=== PATIENT | male | born 1960 | race Caucasian/White ===

== ENCOUNTER 2018-06-17 15:34 | Emergency (ER) | payer OTHER ==
[~2018-06-17] VITALS: Ht 188 cm; Wt 109.1 kg
[~2018-06-17 15:34] MED LIST: ASPI-611 PO; MULT-1141 PO; TICA90TA PO
[2018-06-17 15:37] VITALS: BP 157/94
[2018-06-17] MEDS ORDERED: DOXYCYCLINE 100MG CAPSULE PO STA (15:52)
[2018-06-17] MEDS ORDERED: tetanus & diphtheria toxoid (Td) vaccine 0.5ml IMVAC ONE (15:55)
[2018-06-17] MEDS ORDERED: TETanus/Pertussis (Acell)/Diphther VAC/PF (Tdap-Adult) 0.5ml syringe IMVAC ONE (16:10)
== END 2018-06-17 16:13 | disposition home or self-care (01) ==
LOC: ER 15:35
DX: S30.861A Insect bite (nonvenomous) of abdominal wall, initial encounter (principal); Z88.0 Allergy status to penicillin; Z79.82 Long term (current) use of aspirin; Z79.899 Other long term (current) drug therapy; W57.XXXA Bitten or stung by nonvenomous insect and other nonvenomous arthropods, initial encounter; Y93.89 Activity, other specified; Y92.89 Other specified places as the place of occurrence of the external cause; Y99.8 Other external cause status
CPT/HCPCS: 90471; 90715; 99283

== ENCOUNTER 2019-09-05 15:20 | Inpatient (IN) | payer OTHER ==
[~2019-09-05] VITALS: Ht 188 cm; Wt 111.4 kg
[2019-09-05 16:10] LABS: BASOPHILS # (AUTO) 0.1 X10'3 (0-0.2); BASOPHILS % (AUTO) 0.8 % (0-1); EOSINOPHILS # (AUTO) 0.7 X10'3 (0-0.9); EOSINOPHILS % (AUTO) 7.3 % (0-6); HEMATOCRIT 49.3 % (42.0-52.0); HEMOGLOBIN 16.6 g/dl (14.0-17.9); LYMPHOCYTES # (AUTO) 2.1 X10'3 (1.1-4.8); LYMPHOCYTES % (AUTO) 22.6 % (21-51); MEAN CORPUSCULAR HEMOGLOBIN 31.1 PG (27.0-31.0); MEAN CORPUSCULAR HGB CONC 33.6 g/dL (33.0-36.5); MEAN CORPUSCULAR VOLUME 92.3 FL (78-98); MEAN PLATELET VOLUME 7.8 FL (7.4-10.4); MONOCYTES # (AUTO) 0.9 X10'3 (0-0.9); MONOCYTES % (AUTO) 9.9 % (2-12); NEUTROPHILS # (AUTO) 5.5 X10'3 (1.8-7.7); NEUTROPHILS % (AUTO) 59.4 % (42-75); PLATELET COUNT 243 X10'3 (140-440); RED BLOOD COUNT 5.34 X10'6 (4.70-6.10); RED CELL DISTRIBUTION WIDTH 12.8 % (11.5-14.5); WHITE BLOOD COUNT 9.2 X10'3 (4.5-11.0)
[2019-09-05] MEDS ORDERED: aspirin 81mg tab.chew PO ONE (16:30)
[2019-09-05 16:34] LABS: ALANINE AMINOTRANSFERASE 43 U/L (12-78); ALBUMIN 3.8 G/DL (3.4-5.0); ALBUMIN/GLOBULIN RATIO 1.1 (1.1-1.5); ALKALINE PHOSPHATASE 66 IU/L (46-116); ANION GAP 9 (8-16); ASPARTATE AMINO TRANSFERASE 23 U/L (10-37); BILIRUBIN,TOTAL 0.5 MG/DL (0.1-1.0); BLOOD UREA NITROGEN 24 MG/DL (7-18); BUN/CREATININE RATIO 15.2 (5.4-32.0); CALCIUM 9.2 MG/DL (8.5-10.1); CHLORIDE 107 MMOL/L (99-107); CREATININE 1.58 MG/DL (0.60-1.10); GLUCOSE 126 MG/DL (70-104); POTASSIUM 3.9 MMOL/L (3.5-5.1); SODIUM 143 MMOL/L (135-145); TOTAL CARBON DIOXIDE 26.9 MMOL/L (24-32); TOTAL PROTEIN 7.2 G/DL (6.4-8.2); eGFR 45 ML/MIN
[2019-09-05] MEDS ORDERED: normal saline 1000ml 1,000 ML IV ONE (17:10)
[2019-09-05] MEDS ORDERED: nitroGLYCERIN 0.2mg/hour patch TD ONE (17:10)
[2019-09-05] MEDS ORDERED: normal saline 1000ML IV soln IVB ONE (17:10)
[2019-09-05] MEDS ORDERED: acetaminophen 325mg tablet PO PRN ×2 (17:20)
[2019-09-05] MEDS ORDERED: ondansetron/PF 4mg/2ml inj IV PRN (17:20)
[2019-09-05] MEDS ORDERED: HYDROcodone/acetaminophen 10/325mg tab PO PRN (17:20)
[2019-09-05] MEDS ORDERED: morphine 2 MG/ML inj. syringe IV PRN ×2 (17:20)
[2019-09-05] MEDS ORDERED: mag hydrox/Alum hydrox/simeth 30ml oral suspension PO PRN (17:20)
[2019-09-05] MEDS ORDERED: magnesium hydroxide 30ml (MOM) UD suspension PO PRN (17:20)
[2019-09-05] MEDS ORDERED: HYDROcodone/acetaminophen 5mg/325mg tablet PO PRN (17:20)
--- NOTE | 2019-09-05 17:49 | NUR ---
relieving RN for break, DURGA nurse is at bedside, pt is resting quietly on gurney, no chest pain, waiting to be evaluated by hospitalist
[2019-09-05] MEDS ORDERED: LISI-604 PO (17:59)
[2019-09-05] MEDS ORDERED: NEOM10SO7 EACH EAR (17:59)
[2019-09-05] MEDS ORDERED: CLOP75TA33 PO (17:59)
[2019-09-05] MEDS ORDERED: CARV3.122 PO (17:59)
[2019-09-05] MEDS ORDERED: CHOL10006 PO (17:59)
--- NOTE | 2019-09-05 18:12 | NUR ---
Pt to CT scan via w/c.
[2019-09-05 20:00] VITALS: BP 142/93
[2019-09-06] VITALS (14 sets, daily range): BP systolic 108–150; BP diastolic 64–87
[2019-09-06 03:36] LABS: BASOPHILS # (AUTO) 0.1 X10'3 (0-0.2); BASOPHILS % (AUTO) 0.8 % (0-1); EOSINOPHILS # (AUTO) 0.7 X10'3 (0-0.9); EOSINOPHILS % (AUTO) 7.5 % (0-6); HEMATOCRIT 44.5 % (42.0-52.0); LYMPHOCYTES # (AUTO) 2.5 X10'3 (1.1-4.8); LYMPHOCYTES % (AUTO) 28.4 % (21-51); MEAN CORPUSCULAR HEMOGLOBIN 31.1 PG (27.0-31.0); MEAN CORPUSCULAR HGB CONC 33.7 g/dL (33.0-36.5); MEAN CORPUSCULAR VOLUME 92.1 FL (78-98); MEAN PLATELET VOLUME 7.9 FL (7.4-10.4); MONOCYTES # (AUTO) 0.9 X10'3 (0-0.9); MONOCYTES % (AUTO) 9.6 % (2-12); NEUTROPHILS # (AUTO) 4.8 X10'3 (1.8-7.7); NEUTROPHILS % (AUTO) 53.7 % (42-75); PLATELET COUNT 203 X10'3 (140-440); RED BLOOD COUNT 4.83 X10'6 (4.70-6.10); RED CELL DISTRIBUTION WIDTH 12.5 % (11.5-14.5); WHITE BLOOD COUNT 8.9 X10'3 (4.5-11.0)
[2019-09-06 03:50] LABS: ANION GAP 7 (8-16); BLOOD UREA NITROGEN 24 MG/DL (7-18); BUN/CREATININE RATIO 20.3 (5.4-32.0); CALCIUM 8.6 MG/DL (8.5-10.1); CHLORIDE 109 MMOL/L (99-107); CHOL/HDL RATIO 6.1 (0.00-4.99); CHOLESTEROL 227 MG/DL (0-200); CREATININE 1.18 MG/DL (0.60-1.10); GLUCOSE 112 MG/DL (70-104); HDL CHOLESTEROL 37 MG/DL (35-60); LDL CHOLESTEROL 158 MG/DL (50-100); POTASSIUM 3.9 MMOL/L (3.5-5.1); SODIUM 142 MMOL/L (135-145); TOTAL CARBON DIOXIDE 26.4 MMOL/L (24-32); TRIGLYCERIDES 162 MG/DL (20-135); eGFR 64 ML/MIN
--- NOTE | 2019-09-06 06:38 | NUR ---
Problems reprioritized. Patient report given, questions answered & plan of care reviewed with ERROL Feng.
[2019-09-06] MEDS ORDERED: regadenoson 0.4mg/5ml syringe IV PRN (07:40)
[2019-09-06] MEDS ORDERED: metoprolol tartrate 1mg/ml inj IV PRN (07:40)
[2019-09-06] MEDS ORDERED: aminophylline 250mg/10ml inj. IV PRN (07:40)
[2019-09-06] MEDS ORDERED: nitroGLYCERIN 0.4mg SUBLingual tab SL PRN (07:40)
[2019-09-06] MEDS ORDERED: vitamin D (cholecalciferol) 1,000 unit tablet PO SCH (09:00)
--- NOTE | 2019-09-06 13:00 | NUR ---
Dr. Haley called to keep pt NPO until seen by Dr. Crews, d/t positive Stress Test. Pt was instructed by RN to cease eating lunch at this time. Pt verbalized understanding. NPO orders placed in [facility].
[2019-09-06] MEDS: clopidogrel 75mg tablet PO SCH (13:21)
[2019-09-06] MEDS: aspirin 81mg tab.chew PO SCH (13:22)
[2019-09-06] MEDS: lisinopril 5mg tablet PO SCH (13:22)
[2019-09-06] MEDS: carVEDilol 3.125mg tablet PO SCH ×2 (13:22→20:00)
--- NOTE | 2019-09-06 13:55 | NUR ---
miles Haley - Dr. Crews said heart cath tomorrow. So NPO after midnight? And pt states he doesn't need Cortisporin ear drops. ok to d/c? Addendum: 09/06/19 at 1524 by Ping Orourke RN called back. NPO at midnight. and ok to d/c ear drops.
[2019-09-06] MEDS ORDERED: neomy sulf/polymyx B sulf/HC otic soln 10ml EACH EAR SCH (14:00)
--- NOTE | 2019-09-06 15:24 | NUR ---
paged Dr. Haley - 24hr tele order up at 0928. ok to edit order to continue tele since pt is going for heart cath tomorrow?
--- NOTE | 2019-09-06 17:57 | NUR ---
Gabriel Haley - Dr. Crews said he did not want to do heart cath tomorrow. pt ok to go home tomorrow with 2 Nitro's. Addendum: 09/06/19 at 1815 by Ping [address]ourke RN Dr. Haley stated go ahead and leave pt NPO after midnight just in case.
[2019-09-07] VITALS: BP 108/57
--- NOTE | 2019-09-07 06:05 | NUR ---
Patient in room [facility]. I have received report from ERROL Perea and had the opportunity to ask questions and assume patient care.
[2019-09-07 06:30] VITALS: BP 118/68
[2019-09-07 07:00] LABS: ALBUMIN 3.2 G/DL (3.4-5.0); ANION GAP 5 (8-16); BLOOD UREA NITROGEN 16 MG/DL (7-18); BUN/CREATININE RATIO 14.7 (5.4-32.0); CALCIUM 8.2 MG/DL (8.5-10.1); CHLORIDE 109 MMOL/L (99-107); CREATININE 1.09 MG/DL (0.60-1.10); GLUCOSE 117 MG/DL (70-104); SODIUM 141 MMOL/L (135-145); TOTAL CARBON DIOXIDE 26.8 MMOL/L (24-32); eGFR 70 ML/MIN
[2019-09-07 07:02] LABS: BASOPHILS # (AUTO) 0.1 X10'3 (0-0.2); BASOPHILS % (AUTO) 0.9 % (0-1); EOSINOPHILS # (AUTO) 0.5 X10'3 (0-0.9); EOSINOPHILS % (AUTO) 5.9 % (0-6); HEMATOCRIT 46.6 % (42.0-52.0); LYMPHOCYTES # (AUTO) 2.1 X10'3 (1.1-4.8); MEAN CORPUSCULAR HEMOGLOBIN 31.7 PG (27.0-31.0); MEAN CORPUSCULAR HGB CONC 34.3 g/dL (33.0-36.5); MEAN CORPUSCULAR VOLUME 92.5 FL (78-98); MEAN PLATELET VOLUME 8.1 FL (7.4-10.4); MONOCYTES # (AUTO) 0.8 X10'3 (0-0.9); MONOCYTES % (AUTO) 8.6 % (2-12); NEUTROPHILS # (AUTO) 5.6 X10'3 (1.8-7.7); NEUTROPHILS % (AUTO) 61.6 % (42-75); PLATELET COUNT 222 X10'3 (140-440); POTASSIUM 4.2 MMOL/L (3.5-5.1); RED BLOOD COUNT 5.04 X10'6 (4.70-6.10); RED CELL DISTRIBUTION WIDTH 12.5 % (11.5-14.5)
--- NOTE | 2019-09-07 07:08 | NUR ---
Updated IV location, document in the left arm when actually in the right arm. Addendum: 09/07/19 at 0710 by Faye Masters STUDENT -JUDE Amended: Links added. Addendum: 09/07/19 at 0732 by Faye CROWELL Documentation on wrong patient. Corrected IV to previous documented status.
--- NOTE | 2019-09-07 07:30 | NUR ---
Correction, documented on wrong patient. Addendum: 09/07/19 at 0731 by Faye Masters STUDENT MERVTA Amended: Links added.
[2019-09-07] MEDS: aspirin 81mg tab.chew PO SCH (08:00)
[2019-09-07] MEDS: carVEDilol 3.125mg tablet PO SCH (08:00)
[2019-09-07] MEDS: clopidogrel 75mg tablet PO SCH (08:00)
[2019-09-07] MEDS ORDERED: vitamin D (cholecalciferol) 1,000 unit tablet PO SCH (10:18)
[2019-09-07] MEDS: lisinopril 5mg tablet PO SCH (10:21)
[2019-09-07 11:00] VITALS: BP 118/71
--- NOTE | 2019-09-07 14:40 | NUR ---
DC inst provided to pt. IV DC'd, tip intact. All belongings sent w/pt. Pt ambulated to front lobby.
== END 2019-09-07 14:40 | disposition home or self-care (01) | DRG 302 ==
LOC: ER 15:21 → UNDOADMIN 17:18 → ED HOLD 17:18 → SUR 3N 19:55 → ED HOLD 19:55 → SUR 3N 09-06 12:40
PROVIDERS: ADMIT Internal Medicine; ATTEND Internal Medicine
PROC: 4A02XM4 Measurement of Cardiac Total Activity, External Approach (ICD-10-PCS; principal; 2019-09-06)
PROC: 3E073KZ Introduction of Other Diagnostic Substance into Coronary Artery, Percutaneous Approach (ICD-10-PCS; 2019-09-06)
DX: I25.118 Atherosclerotic heart disease of native coronary artery with other forms of angina pectoris (principal); N17.0 Acute kidney failure with tubular necrosis; E78.5 Hyperlipidemia, unspecified; I10 Essential (primary) hypertension; Z79.02 Long term (current) use of antithrombotics/antiplatelets; Z79.82 Long term (current) use of aspirin; Z88.0 Allergy status to penicillin; Z95.5 Presence of coronary angioplasty implant and graft
CPT/HCPCS: 36415; 71045; 78452; 80048; 80053; 80061; 83036; 83880; 84484; 85025; 87081; 93005; 93017; 99285; A9500; G0378; J2785; J7030

== ENCOUNTER 2020-06-03 12:45 | Day surgery (SDC) | payer OTHER ==
[2020-05-29 16:04] LABS: BASOPHILS # (AUTO) 0.1 X10'3 (0-0.2); EOSINOPHILS # (AUTO) 0.6 X10'3 (0-0.9); EOSINOPHILS % (AUTO) 6.5 % (0-6); HEMATOCRIT 46.6 % (42.0-52.0); HEMOGLOBIN 15.8 g/dl (14.0-17.9); LYMPHOCYTES # (AUTO) 2.3 X10'3 (1.1-4.8); LYMPHOCYTES % (AUTO) 24.8 % (21-51); MEAN CORPUSCULAR HEMOGLOBIN 31.4 PG (27.0-31.0); MEAN CORPUSCULAR HGB CONC 33.8 g/dL (33.0-36.5); MEAN CORPUSCULAR VOLUME 92.8 FL (78-98); MEAN PLATELET VOLUME 8.3 FL (7.4-10.4); MONOCYTES # (AUTO) 1.1 X10'3 (0-0.9); MONOCYTES % (AUTO) 11.6 % (2-12); NEUTROPHILS # (AUTO) 5.2 X10'3 (1.8-7.7); NEUTROPHILS % (AUTO) 56.1 % (42-75); PLATELET COUNT 249 X10'3 (140-440); RED BLOOD COUNT 5.02 X10'6 (4.70-6.10); RED CELL DISTRIBUTION WIDTH 12.8 % (11.5-14.5); WHITE BLOOD COUNT 9.3 X10'3 (4.5-11.0)
[2020-05-29 16:17] LABS: ALBUMIN 3.6 G/DL (3.4-5.0); ANION GAP 6 (8-16); BLOOD UREA NITROGEN 20 MG/DL (7-18); BUN/CREATININE RATIO 19.6 (5.4-32.0); CALCIUM 8.8 MG/DL (8.5-10.1); CHLORIDE 107 MMOL/L (99-107); CREATININE 1.02 MG/DL (0.60-1.10); GLUCOSE 91 MG/DL (70-104); PARTIAL THROMBOPLASTIN TIME 26 SECONDS (22-32); POTASSIUM 4.1 MMOL/L (3.5-5.1); SODIUM 141 MMOL/L (135-145); TOTAL CARBON DIOXIDE 27.6 MMOL/L (24-32); eGFR 75 ML/MIN
[~2020-06-03] VITALS: Ht 188 cm; Wt 111.5 kg
[2020-06-03] VITALS (11 sets, daily range): BP systolic 114–153; BP diastolic 69–100
[~2020-06-03 12:45] MED LIST changes: +CARV3.122 PO; +CHOL10006 PO; +CLOP75TA33 PO; +LISI-790 PO; -MULT-1141 PO; +NEOM10SO7 EACH EAR; -TICA90TA PO
[2020-06-03] MEDS ORDERED: ROSU40TA22 PO (13:17)
[2020-06-03] MEDS ORDERED: LIDOcaine/PRILOcaine 5gm cream TP ONE (14:10)
[2020-06-03] MEDS ORDERED: LORazepam 1 MG tablet PO ONE (14:10)
[2020-06-03] MEDS ORDERED: normal saline 1000ml 1,000 ML IV SCH (14:10)
[2020-06-03] MEDS ORDERED: diphenhydrAMINE 25mg capsule PO ONE (14:10)
[2020-06-03] MEDS ORDERED: LORazepam 0.5 MG tablet PO ONE (14:25)
[2020-06-03] MEDS ORDERED: fentaNYL/PF 50MCG/1 ML 2ML syringe ONE (14:49)
[2020-06-03] MEDS ORDERED: midazolam 1 mg/ML 2ml injection ONE (14:49)
[2020-06-03] MEDS ORDERED: iohexol 350MG/ML 100ml bottle IV ONE ×2 (14:50→15:42)
[2020-06-03] MEDS ORDERED: heparin 1,000unit/ml 10ml vial 10 ML ONE ×2 (14:50→15:43)
[2020-06-03] MEDS ORDERED: LIDOcaine 1% (10mg/ml)w/preservative injection 20ml MDV ONE (14:50)
[2020-06-03] MEDS ORDERED: nitroGLYCERIN-Tridil 50MG/D5W 250 ML IV ONE (14:53)
[2020-06-03] MEDS ORDERED: verapamil 2.5 mg/ml inj IV ONE (14:53)
[2020-06-03] MEDS ORDERED: iohexol 350 MG/ML 50ML vial IV ONE (15:55)
[2020-06-03] MEDS ORDERED: ticagrelor 90mg tablet ONE (16:16)
[2020-06-03] MEDS ORDERED: CLOP75TA15 PO (17:15)
[2020-06-03] MEDS ORDERED: proCHLORperazine 10 MG/2 ml inj IV PRN (17:30)
[2020-06-03] MEDS ORDERED: HYDROcodone/acetaminophen 5mg/325mg tablet PO PRN (17:30)
[2020-06-03] MEDS ORDERED: OXAZEpam 15mg capsule PO PRN (17:30)
[2020-06-03] MEDS ORDERED: ondansetron/PF 4mg/2ml inj IV PRN (17:30)
[2020-06-03] MEDS ORDERED: HYDROcodone/acetaminophen 10/325mg tab PO PRN (17:30)
[2020-06-03] MEDS ORDERED: nitroGLYCERIN 0.4mg SUBLingual tab SL PRN (17:30)
== END 2020-06-03 18:55 | disposition home or self-care (01) ==
LOC: SSTAY O 12:45
PROVIDERS: ATTEND Internal Medicine Interventional Cardiology
DX: R94.39 Abnormal result of other cardiovascular function study (principal); I25.10 Atherosclerotic heart disease of native coronary artery without angina pectoris; G47.33 Obstructive sleep apnea (adult) (pediatric); I25.2 Old myocardial infarction; Z79.899 Other long term (current) drug therapy; Z98.890 Other specified postprocedural states; Z88.0 Allergy status to penicillin; Z87.891 Personal history of nicotine dependence
CPT/HCPCS: 36415; 80048; 85025; 85610; 85730; 93005; 93458; 99152; 99153; C1725; C1751; C1769; C1874; C1894; C9600; J1644; J2001; J2250; J3010; J7030; Q0163; Q9967; 93459; A4620; J3490

== ENCOUNTER 2023-10-03 09:30 | Day surgery (SDC) | payer OTHER ==
[~2023-10-03] VITALS: Ht 188 cm; Wt 107.6 kg
[2023-10-03] VITALS (9 sets, daily range): BP systolic 114–150; BP diastolic 72–92; PULSE 51–95; RESP 15–18; TEMP 98.1; O2SAT 95–100
[~2023-10-03 09:30] MED LIST changes: -CHOL10006 PO; +CLOP75TA15 PO; -CLOP75TA33 PO; -LISI-790 PO; -NEOM10SO7 EACH EAR; +ROSU40TA22 PO
[2023-10-03] MEDS ORDERED: ROSU10TA2 PO (09:39)
[2023-10-03] MEDS ORDERED: NITR0.4T48 SL (09:39)
[2023-10-03] MEDS ORDERED: LISI5TAB22 PO (09:39)
[2023-10-03] MEDS ORDERED: ISOS30TA84 PO (09:39)
[2023-10-03] MEDS ORDERED: LORazepam 0.5 MG tablet PO PRN (09:45)
[2023-10-03] MEDS ORDERED: normal saline 1,000 ML IV SCH (09:45)
[2023-10-03 09:52] LABS: BASOPHILS # (AUTO) 0.1 X10'3 (0-0.2); BASOPHILS % (AUTO) 0.8 % (0-1); EOSINOPHILS # (AUTO) 0.5 X10'3 (0-0.9); HEMATOCRIT 48.5 % (42.0-52.0); HEMOGLOBIN 16.3 g/dl (14.0-17.9); LYMPHOCYTES % (AUTO) 25.9 % (21-51); MEAN CORPUSCULAR HEMOGLOBIN 31.8 PG (27.0-31.0); MEAN CORPUSCULAR HGB CONC 33.6 g/dL (33.0-36.5); MEAN CORPUSCULAR VOLUME 94.7 FL (78-98); MEAN PLATELET VOLUME 7.9 FL (7.4-10.4); MONOCYTES # (AUTO) 0.8 X10'3 (0-0.9); MONOCYTES % (AUTO) 10.6 % (2-12); NEUTROPHILS # (AUTO) 4.4 X10'3 (1.8-7.7); NEUTROPHILS % (AUTO) 56.7 % (42-75); PLATELET COUNT 228 X10'3 (140-440); RED BLOOD COUNT 5.12 X10'6 (4.70-6.10); RED CELL DISTRIBUTION WIDTH 12.5 % (11.5-14.5); WHITE BLOOD COUNT 7.7 X10'3 (4.5-11.0)
[2023-10-03 10:02] LABS: APTT 26 SECONDS (22-32); PROTHROMBIN TIME 10.8 SECONDS (9.0-12.0)
[2023-10-03 10:04] LABS: ALBUMIN 3.8 G/DL (3.4-5.0); ANION GAP 7 (8-16); BLOOD UREA NITROGEN 25 MG/DL (7-18); BUN/CREATININE RATIO 23.8 (10.0-20.0); CALCIUM 9.1 MG/DL (8.5-10.1); CHLORIDE 104 MMOL/L (99-107); CHOL/HDL RATIO 3.8 (0.00-4.99); CHOLESTEROL 196 MG/DL (0-200); CREATININE 1.05 MG/DL (0.60-1.10); GLUCOSE 125 MG/DL (70-104); HDL CHOLESTEROL 52 MG/DL (35-60); LDL CHOLESTEROL 130 MG/DL (50-100); POTASSIUM 4.1 MMOL/L (3.5-5.1); SODIUM 139 MMOL/L (135-145); TOTAL CARBON DIOXIDE 27.9 MMOL/L (24-32); TRIGLYCERIDES 84 MG/DL (20-135); eCRCL 86 ML/MIN; eGFR 72 ML/MIN
[2023-10-03] MEDS ORDERED: fentaNYL/PF 50MCG/1 ML 2ML syringe ONE (11:44)
[2023-10-03] MEDS ORDERED: midazolam 1 mg/ML 2ml injection ONE (11:44)
[2023-10-03] MEDS ORDERED: heparin 1,000unit/ml 10ml vial 10 ML ONE (11:44)
[2023-10-03] MEDS ORDERED: LIDOcaine 1% (10mg/ml) 2ml vial ONE (11:44)
[2023-10-03] MEDS ORDERED: verapamil 2.5 mg/ml inj IV ONE (11:44)
[2023-10-03] MEDS ORDERED: iohexol 350MG/ML 100ml bottle IV ONE ×2 (11:45→13:53)
[2023-10-03] MEDS ORDERED: nitroGLYCERIN 500mcg/5mL D5W 5 ML IV ONE (11:47)
[2023-10-03] MEDS: diphenhydrAMINE 25mg capsule PO PRN (12:44)
[2023-10-03] MEDS ORDERED: HYDROcodone/acetaminophen 10/325mg tab PO PRN (14:45)
[2023-10-03] MEDS ORDERED: HYDROcodone/acetaminophen 5mg/325mg tablet PO PRN (14:45)
== END 2023-10-03 17:20 | disposition home or self-care (01) ==
LOC: SSTAY O 09:30
PROVIDERS: ATTEND Student in an Organized Health Care Education/Training Program
DX: I25.10 Atherosclerotic heart disease of native coronary artery without angina pectoris (principal); I25.2 Old myocardial infarction; I10 Essential (primary) hypertension; E78.00 Pure hypercholesterolemia, unspecified; G47.33 Obstructive sleep apnea (adult) (pediatric); Z79.82 Long term (current) use of aspirin; Z79.899 Other long term (current) drug therapy; Z88.0 Allergy status to penicillin
CPT/HCPCS: 36415; 80048; 80061; 85025; 85610; 85730; 93005; 93458; 93571; 99152; 99153; J1644; J2250; J3010; J3490; J7030; Q0163; Q9967; A6258; A6402; A6449; C1751; C1769; C1894

== ENCOUNTER 2024-01-27 05:31 | Inpatient (IN) | payer OTHER ==
[2024-01-20 15:28] LABS: BILIRUBIN,URINE NEGATIVE (Neg); CLARITY,URINE CLEAR (Clear); COLOR,URINE YELLOW (Yellow); GLUCOSE, URINE NEGATIVE (Neg); KETONES,URINE TRACE mg/dl (Neg); LEUKOCYTE ESTERASE ,URINE NEGATIVE (Neg); NITRITES, URINE NEGATIVE (Neg); OCCULT BLOOD,URINE NEGATIVE (Neg); PROTEIN,URINE NEGATIVE (Neg); UROBILINOGEN,URINE 0.2 E.U/dL (0.2-1.0)
[2024-01-20 15:28] LABS: BASOPHILS # (AUTO) 0.1 X10'3 (0-0.2); BASOPHILS % (AUTO) 0.7 % (0-1); EOSINOPHILS # (AUTO) 0.4 X10'3 (0-0.9); EOSINOPHILS % (AUTO) 4.8 % (0-6); LYMPHOCYTES # (AUTO) 2.5 X10'3 (1.1-4.8); LYMPHOCYTES % (AUTO) 27.8 % (21-51); MEAN CORPUSCULAR HEMOGLOBIN 31.8 PG (27.0-31.0); MEAN CORPUSCULAR HGB CONC 33.6 g/dL (33.0-36.5); MEAN CORPUSCULAR VOLUME 94.6 FL (78-98); MEAN PLATELET VOLUME 8.3 FL (7.4-10.4); MONOCYTES # (AUTO) 0.9 X10'3 (0-0.9); MONOCYTES % (AUTO) 10.6 % (2-12); NEUTROPHILS # (AUTO) 5.1 X10'3 (1.8-7.7); NEUTROPHILS % (AUTO) 56.1 % (42-75); PRE OP HEMATOCRIT 46.1 % (42.0-52.0); PRE OP HEMOGLOBIN 15.5 g/dL (14.0-17.9); PRE OP PLATELET COUNT 221 X10'3 (140-440); RED BLOOD COUNT 4.88 X10'6 (4.70-6.10); RED CELL DISTRIBUTION WIDTH 12.5 % (11.5-14.5)
[2024-01-20 15:31] LABS: UA COLLECTION TYPE CLN CATCH MIDSTREAM
[2024-01-20 15:38] LABS: PRE OP PROTIME 10.3 SECONDS (9.0-12.0)
[2024-01-20 15:40] LABS: ALBUMIN 3.6 G/DL (3.4-5.0); ALBUMIN/GLOBULIN RATIO 1.1 (1.1-1.5); ALKALINE PHOSPHATASE 59 IU/L (46-116); BLOOD UREA NITROGEN 20 MG/DL (7-18); BUN/CREATININE RATIO 17.9 (10.0-20.0); CALCIUM 9.1 MG/DL (8.5-10.1); CHLORIDE 105 MMOL/L (99-107); CREATININE 1.12 MG/DL (0.60-1.10); PRE OP ALT 38 U/L (30-65); PRE OP ANION GAP 5 (8-16); PRE OP AST 21 U/L (10-37); PRE OP BILIRUB, TOTAL 0.4 MG/DL (0.0-1.0); PRE OP GLUCOSE 126 MG/DL (70-104); PRE OP POTASSIUM 3.8 MMOL/L (3.4-5.1); PRE OP SODIUM 140 MMOL/L (135-145); TOTAL CARBON DIOXIDE 29.8 MMOL/L (24-32); TOTAL PROTEIN 6.8 G/DL (6.4-8.2); eGFR 67 ML/MIN
[2024-01-20 16:35] LABS: HEMOGLOBIN A1C 5.9 % (4.5-6.2)
[2024-01-23 09:28] LABS: ABG BASE EXCESS -2.1 mmol/L (-2.0-3.0); ABG HCO3 20.2 mmol/L (21.0-28.0); ABG OXYGEN SATURATION 96.6 % (94.0-98.0); ABG PCO2 (T) 29.1 mmHg (35.0-48.0); ABG PO2 (T) 88.6 mmHg (83.0-108.0); ALLEN'S TEST POSITIVE; FCOHb 0.3 % (0.5-1.5); FHHb 3.4 % (0.0-5.0); FO2Hb 96.3 % (94.0-98.0); MODE ROOM AIR; TOTAL HEMOGLOBIN 16.4 G/dl (13.5-17.5)
[~2024-01-27] VITALS: Ht 188 cm; Wt 103.0 kg
[2024-01-27] VITALS (22 sets, daily range): BP systolic 92–143; BP diastolic 56–93; PULSE 42–78; RESP 12–30; TEMP 98.7; O2SAT 93–100
[2024-01-27] MEDS: Insulin Reg/NS 100units/100mL 100 ML IV SCH ×2 (05:30→11:30)
[2024-01-27] MEDS: DOCUMENT DATE & TIME OF BETA-BLOCKER PO ONE (05:30)
[~2024-01-27 05:31] MED LIST changes: +ACET-343 PO; +CHOL100046 PO; +IBUP-1985 PO; +ISOS30TA84 PO; +LISI5TAB22 PO; +MULT-1249 PO; +ROSU40TA PO; -ROSU40TA22 PO; +dextrose 50%-water 50ml dispensing syringe IV PRN; +insulin glargine (Lantus) pen - multi-dose SQ PRN
[2024-01-27] MEDS: vancomycin 1,500 MG in NS 300ml IV soln IV ONE (06:18)
[2024-01-27] MEDS: mupirocin 2% nasal ointment 1gm UD NS ONE (06:18)
[2024-01-27] MEDS: famotidine 20mg tablet PO ONE (06:19)
[2024-01-27] MEDS: metoprolol tartrate 12.5mg (1/2 tablet) PO ONE (06:19)
[2024-01-27] MEDS: ceFAZolin 2gm in dextrose, iso 50 ML IV ONE (06:24)
[2024-01-27] MEDS: ringers solution, lacted 1,000 ML IV SCH (06:24)
[2024-01-27] MEDS: epiNEPHrine 1 mg/ml inj ONE ×2 (06:50→07:03)
[2024-01-27] MEDS: ceFAZolin 1000mg inj ONE (06:50)
[2024-01-27] MEDS: vancomycin 1,000mg inj ONE (06:50)
[2024-01-27] MEDS: BUPIVAcaine 0.5% inj/PF 30 ML ONE ×2 (06:51→09:17)
[2024-01-27] MEDS ORDERED: MIDAZolam 1 MG/ML 5ML VIAL ONE (08:01)
[2024-01-27] MEDS ORDERED: SUfentanil 50mcg/ml 1ml amp IV ONE (08:01)
[2024-01-27] MEDS ORDERED: sevoflurane 250ml liquid IH ONE (08:04)
[2024-01-27] MEDS: LORazepam 2 mg/ml vial IV ONE (08:06)
[2024-01-27 08:44] LABS: ABG HCO3 23.7 mmol/L (21.0-28.0); ABG OXYGEN SATURATION 98.4 % (94.0-98.0); ABG PCO2 43.6 mmHg (35.0-48.0); ABG PH 7.353 (7.350-7.450); ABG PO2 139.7 mmHg (83.0-108.0); CL (ABG) 106 mmol/L (98-107); FCOHb 0.3 % (0.5-1.5); FHHb 1.6 % (0.0-5.0); FMetHb 0.1 % (0.0-1.5); GLUCOSE (ABG) 127 mg/dl (65-95); IONIZED CA (ABG) 1.16 mmol/L (1.15-1.33); K (ABG) 4.3 mmol/L (3.40-4.50); TOTAL HEMOGLOBIN 15.7 G/dl (13.5-17.5)
[2024-01-27] MEDS: ceFAZolin 1000mg inj IR ONE (09:21)
[2024-01-27 10:03] LABS: ABG BASE EXCESS VENOUS -1.1 mmol/L (-2.0-3.0); ABG HCO3 VENOUS 23.9 mmol/L (22.0-29.0); ABG OXYGEN SATURATION VENOUS 85.3 % (60.0-85.0); ABG PCO2 VENOUS 41.3 mmHg (38.0-54.0); ABG PH (VENOUS) 7.381 (7.320-7.430); ABG PO2 VENOUS 50.3 mmHg (23.0-48.0); CL (ABG) 102 mmol/L (98-107); FCOHb VENOUS 0.3 % (0.5-1.5); FHHb VENOUS 14.6 %; FMetHb VENOUS 0.2 % (0.5-1.5); FO2Hb VENOUS 84.9 % (0-80.0); GLUCOSE (ABG) 107 mg/dl (65-95); IONIZED CA (ABG) 0.95 mmol/L (1.15-1.33); K (ABG) 4.2 mmol/L (3.40-4.50); TOTAL HEMOGLOBIN 11.9 G/dl (13.5-17.5)
[2024-01-27 10:09] LABS: ABG HCO3 22.8 mmol/L (21.0-28.0); ABG OXYGEN SATURATION 99.1 % (94.0-98.0); ABG PCO2 34.8 mmHg (35.0-48.0); ABG PH 7.434 (7.350-7.450); CL (ABG) 104 mmol/L (98-107); FCOHb 0.2 % (0.5-1.5); FHHb 0.9 % (0.0-5.0); FMetHb 0.2 % (0.0-1.5); FO2Hb 98.7 % (94.0-98.0); GLUCOSE (ABG) 112 mg/dl (65-95); IONIZED CA (ABG) 1.01 mmol/L (1.15-1.33); K (ABG) 4.3 mmol/L (3.40-4.50); TOTAL HEMOGLOBIN 12.1 G/dl (13.5-17.5)
[2024-01-27 10:31] LABS: ABG BASE EXCESS -2.4 mmol/L (-2.0-3.0); ABG HCO3 22.9 mmol/L (21.0-28.0); ABG PCO2 41.3 mmHg (35.0-48.0); ABG PH 7.361 (7.350-7.450); ABG PO2 278.7 mmHg (83.0-108.0); CL (ABG) 105 mmol/L (98-107); FCOHb 0.3 % (0.5-1.5); FMetHb 0.2 % (0.0-1.5); FO2Hb 98.5 % (94.0-98.0); GLUCOSE (ABG) 131 mg/dl (65-95); IONIZED CA (ABG) 1.06 mmol/L (1.15-1.33); K (ABG) 4.4 mmol/L (3.40-4.50); TOTAL HEMOGLOBIN 12.7 G/dl (13.5-17.5)
[2024-01-27 10:55] LABS: ABG BASE EXCESS -0.6 mmol/L (-2.0-3.0); ABG HCO3 25.2 mmol/L (21.0-28.0); ABG OXYGEN SATURATION 99.1 % (94.0-98.0); ABG PCO2 46.1 mmHg (35.0-48.0); ABG PH 7.356 (7.350-7.450); ABG PO2 282.4 mmHg (83.0-108.0); CL (ABG) 105 mmol/L (98-107); FCOHb 0.3 % (0.5-1.5); FHHb 0.9 % (0.0-5.0); FMetHb 0.1 % (0.0-1.5); FO2Hb 98.7 % (94.0-98.0); GLUCOSE (ABG) 148 mg/dl (65-95); IONIZED CA (ABG) 1.51 mmol/L (1.15-1.33); TOTAL HEMOGLOBIN 11.9 G/dl (13.5-17.5)
[2024-01-27] MEDS ORDERED: rocuronium 10mg/ml inj IV ONE ×3 (11:05)
[2024-01-27] MEDS ORDERED: propofol inj 20 ML IV ONE (11:06)
[2024-01-27] MEDS ORDERED: fentaNYL/PF 50MCG/1 ML 2ML syringe ONE (11:06)
[2024-01-27 11:09] LABS: ABG BASE EXCESS -1.8 mmol/L (-2.0-3.0); ABG HCO3 24.3 mmol/L (21.0-28.0); ABG PCO2 46.9 mmHg (35.0-48.0); ABG PH 7.332 (7.350-7.450); CL (ABG) 105 mmol/L (98-107); FCOHb 0.3 % (0.5-1.5); FHHb 17.8 % (0.0-5.0); FMetHb 0.1 % (0.0-1.5); FO2Hb 81.8 % (94.0-98.0); GLUCOSE (ABG) 149 mg/dl (65-95); IONIZED CA (ABG) 1.21 mmol/L (1.15-1.33); K (ABG) 4.1 mmol/L (3.40-4.50); TOTAL HEMOGLOBIN 12.2 G/dl (13.5-17.5)
[2024-01-27 11:12] LABS: ACTIVATED CLOTTING TIME 109 SEC (101-148)
[2024-01-27] MEDS ORDERED: albumin (Human) 5% 250ml 250 ML IV ONE (11:13)
[2024-01-27] MEDS ORDERED: magnesium sulf-water 4G/100mL 100 ML IV PRN (11:30)
[2024-01-27] MEDS ORDERED: acetaminophen 325mg tablet PO PRN ×2 (11:30)
[2024-01-27] MEDS ORDERED: mineral oil 133ml enema RC PRN (11:30)
[2024-01-27] MEDS ORDERED: magnesium hydroxide 30ml (MOM) UD suspension PO PRN (11:30)
[2024-01-27] MEDS ORDERED: insulin glargine (Lantus) pen - multi-dose SQ PRN (11:30)
[2024-01-27] MEDS ORDERED: potassium Cl 20 mEq SR tablet PO PRN (11:30)
[2024-01-27] MEDS ORDERED: niCARDipine-NS 40mg/200ml IVPB 200 ML IV PRN (11:30)
[2024-01-27] MEDS ORDERED: metoclopramide 5 mg/ml inj IV PRN (11:30)
[2024-01-27] MEDS ORDERED: potassium CL 10mEq/100ml bag 100 ML IV PRN (11:30)
[2024-01-27] MEDS ORDERED: ondansetron/PF 4mg/2ml inj IV PRN (11:30)
[2024-01-27] MEDS ORDERED: bisacodyl 10mg suppository rectal RC PRN (11:30)
[2024-01-27] MEDS ORDERED: HYDROcodone/acetaminophen 10/325mg tab PO PRN (11:30)
[2024-01-27] MEDS ORDERED: Neutra Phos packet PO PRN (11:30)
[2024-01-27] MEDS: sodium chloride 0.45% 1,000 ML IV SCH (11:30)
[2024-01-27] MEDS ORDERED: sodium phosphate inj. 30 MMOL in dextrose 5%-water 250 ML IV PRN (11:30)
[2024-01-27] MEDS: nitroGLYCERIN-Tridil 50MG/D5W 250 ML IV SCH (11:30)
[2024-01-27] MEDS ORDERED: potassium Cl 40MEQ/1/2NS 520ml 520 ML IV PRN (11:30)
[2024-01-27] MEDS ORDERED: dextrose 50%-water 50ml dispensing syringe IV PRN (11:30)
[2024-01-27] MEDS: albumin (Human) 5% 250ml 250 ML IV PRN (12:38)
[2024-01-27] MEDS: gabapentin 300mg capsule PO SCH (13:00)
[2024-01-27 13:33] LABS: ALANINE AMINOTRANSFERASE 22 U/L (12-78); ALBUMIN 2.7 G/DL (3.4-5.0); ALBUMIN/GLOBULIN RATIO 1.4 (1.1-1.5); ALKALINE PHOSPHATASE 28 IU/L (46-116); ANION GAP 6 (8-16); ASPARTATE AMINO TRANSFERASE 28 U/L (10-37); BILIRUBIN,TOTAL 0.6 MG/DL (0.1-1.0); BLOOD UREA NITROGEN 15 MG/DL (7-18); BUN/CREATININE RATIO 14.9 (10.0-20.0); CHLORIDE 109 MMOL/L (99-107); CREATININE 1.01 MG/DL (0.60-1.10); GLUCOSE 137 MG/DL (70-104); MAGNESIUM 2.1 MG/DL (1.5-2.4); PHOSPHORUS 2.2 MG/DL (2.3-4.5); POTASSIUM 3.8 MMOL/L (3.5-5.1); SODIUM 141 MMOL/L (135-145); TOTAL CARBON DIOXIDE 25.9 MMOL/L (24-32); TOTAL PROTEIN 4.7 G/DL (6.4-8.2); eCRCL 89 ML/MIN; eGFR 75 ML/MIN
[2024-01-27 13:39] LABS: APTT 24 SECONDS (22-32); INR 1.2 INR
[2024-01-27 13:52] LABS: BASOPHILS # (AUTO) 0.1 X10'3 (0-0.2); BASOPHILS % (AUTO) 0.3 % (0-1); EOSINOPHILS # (AUTO) 0.1 X10'3 (0-0.9); EOSINOPHILS % (AUTO) 0.6 % (0-6); HEMATOCRIT 37.8 % (42.0-52.0); HEMOGLOBIN 12.4 g/dl (14.0-17.9); LYMPHOCYTES # (AUTO) 1.5 X10'3 (1.1-4.8); LYMPHOCYTES % (AUTO) 8.9 % (21-51); MEAN CORPUSCULAR HEMOGLOBIN 31.1 PG (27.0-31.0); MEAN CORPUSCULAR HGB CONC 32.9 g/dL (33.0-36.5); MEAN CORPUSCULAR VOLUME 94.6 FL (78-98); MEAN PLATELET VOLUME 8.2 FL (7.4-10.4); MONOCYTES # (AUTO) 0.6 X10'3 (0-0.9); MONOCYTES % (AUTO) 3.5 % (2-12); NEUTROPHILS # (AUTO) 14.9 X10'3 (1.8-7.7); NEUTROPHILS % (AUTO) 86.7 % (42-75); PLATELET COUNT 153 X10'3 (140-440); RED BLOOD COUNT 3.99 X10'6 (4.70-6.10); RED CELL DISTRIBUTION WIDTH 12.5 % (11.5-14.5); WHITE BLOOD COUNT 17.3 X10'3 (4.5-11.0)
[2024-01-27] MEDS: NORepinephrine 8mg/ 250ml NS 250 ML IV SCH (14:00)
[2024-01-27] MEDS: potassium Cl 20mEq/100mL bag 100 ML IV PRN (14:19)
[2024-01-27] MEDS: magnesium sulf-water 2g/50mL 50 ML IV PRN (14:19)
[2024-01-27 14:56] LABS: ABG BASE EXCESS -2.4 mmol/L (-2.0-3.0); ABG HCO3 23.1 mmol/L (21.0-28.0); ABG OXYGEN SATURATION 96.1 % (94.0-98.0); ABG PCO2 (T) 42.4 mmHg (35.0-48.0); ABG PH (T) 7.353 (7.350-7.450); ABG PO2 (T) 86.3 mmHg (83.0-108.0); FCOHb 0.7 % (0.5-1.5); FHHb 3.9 % (0.0-5.0); FMetHb 0.3 % (0.0-1.5); FO2Hb 95.1 % (94.0-98.0); MODE VENT - SIMV; PATIENT TEMPERATURE 36.9; PEEP 5 cm H2O; RESPIRATORY RATE 12 b/min; TIDAL VOLUME 600 mL; TOTAL HEMOGLOBIN 13.5 G/dl (13.5-17.5)
[2024-01-27] MEDS: ceFAZolin/D5W- 1GM premix 50 ML IV SCH (15:59)
[2024-01-27] MEDS: morphine 2 MG/ML inj. syringe IV PRN (15:59)
[2024-01-27] MEDS: sodium phosphate inj. 15 MMOL in dextrose 5%-water 250 ML IV PRN (16:24)
[2024-01-27 18:08] LABS: BASOPHILS % (AUTO) 0.1 % (0-1); EOSINOPHILS % (AUTO) 0 % (0-6); HEMATOCRIT 37.4 % (42.0-52.0); HEMOGLOBIN 12.5 g/dl (14.0-17.9); LYMPHOCYTES # (AUTO) 0.9 X10'3 (1.1-4.8); LYMPHOCYTES % (AUTO) 4.8 % (21-51); MEAN CORPUSCULAR HEMOGLOBIN 31.5 PG (27.0-31.0); MEAN CORPUSCULAR HGB CONC 33.3 g/dL (33.0-36.5); MEAN CORPUSCULAR VOLUME 94.5 FL (78-98); MEAN PLATELET VOLUME 8.2 FL (7.4-10.4); MONOCYTES # (AUTO) 0.8 X10'3 (0-0.9); NEUTROPHILS # (AUTO) 17.6 X10'3 (1.8-7.7); NEUTROPHILS % (AUTO) 91.1 % (42-75); PLATELET COUNT 174 X10'3 (140-440); RED BLOOD COUNT 3.96 X10'6 (4.70-6.10); RED CELL DISTRIBUTION WIDTH 12.4 % (11.5-14.5); WHITE BLOOD COUNT 19.3 X10'3 (4.5-11.0)
[2024-01-27 18:26] LABS: ALBUMIN 3.8 G/DL (3.4-5.0); ANION GAP 9 (8-16); BLOOD UREA NITROGEN 18 MG/DL (7-18); BUN/CREATININE RATIO 14.5 (10.0-20.0); CALCIUM 7.9 MG/DL (8.5-10.1); CHLORIDE 109 MMOL/L (99-107); CREATININE 1.24 MG/DL (0.60-1.10); GLUCOSE 159 MG/DL (70-104); MAGNESIUM 2.3 MG/DL (1.5-2.4); PHOSPHORUS 3.1 MG/DL (2.3-4.5); SODIUM 141 MMOL/L (135-145); TOTAL CARBON DIOXIDE 23.5 MMOL/L (24-32); eCRCL 73 ML/MIN; eGFR 59 ML/MIN
[2024-01-27] MEDS: potassium Cl 40MEQ/270ML bag 250 ML IV PRN (18:57)
[2024-01-27 19:43] LABS: ABG BASE EXCESS -5.3 mmol/L (-2.0-3.0); ABG HCO3 18.7 mmol/L (21.0-28.0); ABG OXYGEN SATURATION 93.9 % (94.0-98.0); ABG PCO2 (T) 32.8 mmHg (35.0-48.0); ABG PH (T) 7.377 (7.350-7.450); ABG PO2 (T) 70.6 mmHg (83.0-108.0); FCOHb 0.3 % (0.5-1.5); FHHb 6.1 % (0.0-5.0); FMetHb 0.3 % (0.0-1.5); FO2Hb 93.3 % (94.0-98.0); MODE VENT - CPAP; PATIENT TEMPERATURE 37.4; PEEP 5 cm H2O; TOTAL HEMOGLOBIN 13.2 G/dl (13.5-17.5)
[2024-01-27] MEDS: vancomycin/NS 1 GM ADD-VANTAGE 250 ML IV SCH (19:59)
[2024-01-27] MEDS: mupirocin 2% nasal ointment 1gm UD NS SCH (20:00)
[2024-01-27] MEDS: atorvastatin 10mg tablet PO SCH (20:52)
[2024-01-27] MEDS: sennosides/docusate sodium tablet PO SCH (20:53)
[2024-01-27] MEDS: morphine 4 MG/ML inj SYRINge IV PRN (20:57)
[2024-01-28] VITALS (29 sets, daily range): BP systolic 101–161; BP diastolic 56–81; PULSE 67–93; RESP 17–30; O2SAT 92–97
[2024-01-28 02:46] LABS: BASOPHILS % (AUTO) 0 % (0-1); EOSINOPHILS % (AUTO) 0 % (0-6); HEMATOCRIT 34.8 % (42.0-52.0); HEMOGLOBIN 11.7 g/dl (14.0-17.9); LYMPHOCYTES # (AUTO) 0.8 X10'3 (1.1-4.8); LYMPHOCYTES % (AUTO) 4.7 % (21-51); MEAN CORPUSCULAR HEMOGLOBIN 31.8 PG (27.0-31.0); MEAN CORPUSCULAR HGB CONC 33.7 g/dL (33.0-36.5); MEAN CORPUSCULAR VOLUME 94.5 FL (78-98); MEAN PLATELET VOLUME 8.4 FL (7.4-10.4); MONOCYTES # (AUTO) 1.4 X10'3 (0-0.9); MONOCYTES % (AUTO) 8.3 % (2-12); NEUTROPHILS # (AUTO) 15.1 X10'3 (1.8-7.7); PLATELET COUNT 134 X10'3 (140-440); RED BLOOD COUNT 3.69 X10'6 (4.70-6.10); RED CELL DISTRIBUTION WIDTH 12.7 % (11.5-14.5); WHITE BLOOD COUNT 17.3 X10'3 (4.5-11.0)
[2024-01-28 03:03] LABS: ALANINE AMINOTRANSFERASE 26 U/L (12-78); ALBUMIN 3.5 G/DL (3.4-5.0); ALBUMIN/GLOBULIN RATIO 1.7 (1.1-1.5); ALKALINE PHOSPHATASE 29 IU/L (46-116); ANION GAP 8 (8-16); ASPARTATE AMINO TRANSFERASE 34 U/L (10-37); BILIRUBIN,TOTAL 0.6 MG/DL (0.1-1.0); BLOOD UREA NITROGEN 17 MG/DL (7-18); BUN/CREATININE RATIO 17.5 (10.0-20.0); CALCIUM 7.7 MG/DL (8.5-10.1); CHLORIDE 107 MMOL/L (99-107); CREATININE 0.97 MG/DL (0.60-1.10); GLUCOSE 144 MG/DL (70-104); MAGNESIUM 2.4 MG/DL (1.5-2.4); PHOSPHORUS 3.2 MG/DL (2.3-4.5); POTASSIUM 4.7 MMOL/L (3.5-5.1); SODIUM 139 MMOL/L (135-145); TOTAL CARBON DIOXIDE 24.4 MMOL/L (24-32); TOTAL PROTEIN 5.6 G/DL (6.4-8.2); eCRCL 93 ML/MIN; eGFR 79 ML/MIN
[2024-01-28] MEDS: aspirin 81mg tab.chew PO SCH (08:48)
[2024-01-28] MEDS: metoprolol tartrate 12.5mg (1/2 tablet) PO SCH (08:49)
[2024-01-28] MEDS: HYDROcodone/acetaminophen 10/325mg tab PO PRN (08:50)
[2024-01-28] MEDS: VANCOMYCIN 1GM 200ML H20 (PEG) 200 ML IV SCH (08:51)
[2024-01-28 20:32] LABS: BASOPHILS # (AUTO) 0.1 X10'3 (0-0.2); BASOPHILS % (AUTO) 0.2 % (0-1); EOSINOPHILS % (AUTO) 0 % (0-6); HEMATOCRIT 35.2 % (42.0-52.0); HEMOGLOBIN 11.7 g/dl (14.0-17.9); LYMPHOCYTES # (AUTO) 0.9 X10'3 (1.1-4.8); MEAN CORPUSCULAR HEMOGLOBIN 31.6 PG (27.0-31.0); MEAN CORPUSCULAR HGB CONC 33.3 g/dL (33.0-36.5); MEAN CORPUSCULAR VOLUME 94.9 FL (78-98); MONOCYTES # (AUTO) 1.9 X10'3 (0-0.9); MONOCYTES % (AUTO) 8.2 % (2-12); NEUTROPHILS % (AUTO) 87.6 % (42-75); PLATELET COUNT 147 X10'3 (140-440); RED BLOOD COUNT 3.71 X10'6 (4.70-6.10); RED CELL DISTRIBUTION WIDTH 12.6 % (11.5-14.5); WHITE BLOOD COUNT 22.8 X10'3 (4.5-11.0)
[2024-01-28 20:46] LABS: ALANINE AMINOTRANSFERASE 30 U/L (12-78); ALBUMIN 3.5 G/DL (3.4-5.0); ALBUMIN/GLOBULIN RATIO 1.3 (1.1-1.5); ALKALINE PHOSPHATASE 37 IU/L (46-116); ANION GAP 6 (8-16); ASPARTATE AMINO TRANSFERASE 29 U/L (10-37); BILIRUBIN,TOTAL 0.8 MG/DL (0.1-1.0); BLOOD UREA NITROGEN 24 MG/DL (7-18); CHLORIDE 99 MMOL/L (99-107); GLUCOSE 190 MG/DL (70-104); MAGNESIUM 2.6 MG/DL (1.5-2.4); PHOSPHORUS 3.2 MG/DL (2.3-4.5); POTASSIUM 5.1 MMOL/L (3.5-5.1); SODIUM 132 MMOL/L (135-145); TOTAL CARBON DIOXIDE 27.5 MMOL/L (24-32); TOTAL PROTEIN 6.2 G/DL (6.4-8.2); eCRCL 75 ML/MIN; eGFR 62 ML/MIN
[2024-01-28] MEDS: ketorolac trometh 15mg/ml vial 15 MG/ML ML IV PRN (20:51)
[2024-01-29] VITALS (28 sets, daily range): BP systolic 91–148; BP diastolic 46–86; PULSE 57–133; RESP 13–27; O2SAT 94–99
[2024-01-29 03:37] LABS: BASOPHILS % (AUTO) 0.2 % (0-1); EOSINOPHILS % (AUTO) 0 % (0-6); HEMATOCRIT 31.9 % (42.0-52.0); HEMOGLOBIN 10.7 g/dl (14.0-17.9); LYMPHOCYTES % (AUTO) 5.5 % (21-51); MEAN CORPUSCULAR HEMOGLOBIN 31.8 PG (27.0-31.0); MEAN CORPUSCULAR HGB CONC 33.7 g/dL (33.0-36.5); MEAN CORPUSCULAR VOLUME 94.6 FL (78-98); MEAN PLATELET VOLUME 8.2 FL (7.4-10.4); MONOCYTES # (AUTO) 1.6 X10'3 (0-0.9); MONOCYTES % (AUTO) 8.4 % (2-12); NEUTROPHILS # (AUTO) 16.3 X10'3 (1.8-7.7); NEUTROPHILS % (AUTO) 85.9 % (42-75); PLATELET COUNT 130 X10'3 (140-440); RED BLOOD COUNT 3.37 X10'6 (4.70-6.10); RED CELL DISTRIBUTION WIDTH 12.6 % (11.5-14.5); WHITE BLOOD COUNT 18.9 X10'3 (4.5-11.0)
[2024-01-29 04:01] LABS: ALBUMIN 3.1 G/DL (3.4-5.0); ANION GAP 3 (8-16); BLOOD UREA NITROGEN 28 MG/DL (7-18); BUN/CREATININE RATIO 26.2 (10.0-20.0); CALCIUM 8.2 MG/DL (8.5-10.1); CHLORIDE 101 MMOL/L (99-107); CREATININE 1.07 MG/DL (0.60-1.10); GLUCOSE 160 MG/DL (70-104); MAGNESIUM 2.6 MG/DL (1.5-2.4); POTASSIUM 4.6 MMOL/L (3.5-5.1); SODIUM 132 MMOL/L (135-145); TOTAL CARBON DIOXIDE 27.7 MMOL/L (24-32); eCRCL 84 ML/MIN; eGFR 70 ML/MIN
[2024-01-29] MEDS: pantoprazole 40mg Tablet.DR PO SCH (07:53)
[2024-01-29] MEDS: amiodarone 150mg/dext, iso-os 100 ML IV ONE (08:41)
[2024-01-29] MEDS: amiodarone/D5 360MG/200ML BAG 200 ML IV SCH (08:49)
[2024-01-30] VITALS (18 sets, daily range): BP systolic 92–137; BP diastolic 56–76; PULSE 56–74; RESP 13–20; TEMP 98.2–98.4; O2SAT 94–98
[2024-01-30 02:38] LABS: BASOPHILS % (AUTO) 0.2 % (0-1); EOSINOPHILS # (AUTO) 0.2 X10'3 (0-0.9); EOSINOPHILS % (AUTO) 1.6 % (0-6); HEMATOCRIT 30.1 % (42.0-52.0); HEMOGLOBIN 10.1 g/dl (14.0-17.9); LYMPHOCYTES # (AUTO) 1.2 X10'3 (1.1-4.8); LYMPHOCYTES % (AUTO) 9.2 % (21-51); MEAN CORPUSCULAR HEMOGLOBIN 31.6 PG (27.0-31.0); MEAN CORPUSCULAR HGB CONC 33.4 g/dL (33.0-36.5); MEAN CORPUSCULAR VOLUME 94.3 FL (78-98); MEAN PLATELET VOLUME 8.6 FL (7.4-10.4); MONOCYTES # (AUTO) 1.3 X10'3 (0-0.9); MONOCYTES % (AUTO) 10.1 % (2-12); NEUTROPHILS % (AUTO) 78.9 % (42-75); PLATELET COUNT 115 X10'3 (140-440); RED BLOOD COUNT 3.19 X10'6 (4.70-6.10); RED CELL DISTRIBUTION WIDTH 12.8 % (11.5-14.5); WHITE BLOOD COUNT 12.6 X10'3 (4.5-11.0)
[2024-01-30 02:41] LABS: ALBUMIN 2.6 G/DL (3.4-5.0); ANION GAP 3 (8-16); BLOOD UREA NITROGEN 25 MG/DL (7-18); CALCIUM 7.8 MG/DL (8.5-10.1); CHLORIDE 104 MMOL/L (99-107); GLUCOSE 129 MG/DL (70-104); MAGNESIUM 2.3 MG/DL (1.5-2.4); PHOSPHORUS 2.6 MG/DL (2.3-4.5); POTASSIUM 4.1 MMOL/L (3.5-5.1); SODIUM 137 MMOL/L (135-145); TOTAL CARBON DIOXIDE 29.6 MMOL/L (24-32); eCRCL 90 ML/MIN; eGFR 76 ML/MIN
[2024-01-30] MEDS ORDERED: potassium Cl 40MEQ/270ML bag 250 ML IV PRN (08:00)
[2024-01-30] MEDS ORDERED: magnesium sulf-water 2g/50mL 50 ML IV PRN (08:00)
[2024-01-30] MEDS ORDERED: potassium CL 10mEq/100ml bag 100 ML IV PRN (08:00)
[2024-01-30] MEDS ORDERED: potassium Cl 20 mEq SR tablet PO PRN ×2 (08:00)
[2024-01-30] MEDS ORDERED: magnesium sulf-water 4G/100mL 100 ML IV PRN (08:00)
[2024-01-30] MEDS ORDERED: potassium Cl 40MEQ/1/2NS 520ml 520 ML IV PRN (08:00)
[2024-01-30] MEDS ORDERED: potassium Cl 20mEq/100mL bag 100 ML IV PRN (08:00)
[2024-01-30] MEDS: amiodarone 200mg tablet PO SCH (08:20)
[2024-01-30] MEDS: magnesium Cl slow-release 64mg tablet PO SCH (08:20)
[2024-01-30] MEDS ORDERED: ipratropium/albuterol 3ml nebule NEB SCH (13:00)
[2024-01-30] MEDS ORDERED: HYDR-3972 PO (15:21)
[2024-01-30] MEDS ORDERED: AMI200T PO (15:21)
[2024-01-30] MEDS ORDERED: budesonide 0.5mg/2ml UD nebule IH SCH (21:00)
[2024-01-31 02:00] VITALS: BP 128/71; PULSE 64; RESP 17; TEMP 99.2; O2SAT 96
[2024-01-31 06:00] VITALS: PULSE 63; RESP 16; RESP 18; TEMP 97.6; O2SAT 96
[2024-01-31 06:45] LABS: BASOPHILS % (AUTO) 0.3 % (0-1); EOSINOPHILS # (AUTO) 0.4 X10'3 (0-0.9); EOSINOPHILS % (AUTO) 4.3 % (0-6); HEMATOCRIT 32.7 % (42.0-52.0); HEMOGLOBIN 11.1 g/dl (14.0-17.9); LYMPHOCYTES # (AUTO) 1.3 X10'3 (1.1-4.8); LYMPHOCYTES % (AUTO) 13.5 % (21-51); MEAN CORPUSCULAR HEMOGLOBIN 32.1 PG (27.0-31.0); MEAN CORPUSCULAR HGB CONC 33.8 g/dL (33.0-36.5); MEAN CORPUSCULAR VOLUME 94.8 FL (78-98); MEAN PLATELET VOLUME 8.4 FL (7.4-10.4); MONOCYTES % (AUTO) 10.4 % (2-12); NEUTROPHILS # (AUTO) 6.8 X10'3 (1.8-7.7); NEUTROPHILS % (AUTO) 71.5 % (42-75); PLATELET COUNT 159 X10'3 (140-440); RED BLOOD COUNT 3.45 X10'6 (4.70-6.10); RED CELL DISTRIBUTION WIDTH 12.7 % (11.5-14.5); WHITE BLOOD COUNT 9.5 X10'3 (4.5-11.0)
[2024-01-31 07:08] LABS: ALBUMIN 2.6 G/DL (3.4-5.0); ANION GAP 6 (8-16); BLOOD UREA NITROGEN 16 MG/DL (7-18); CALCIUM 8.3 MG/DL (8.5-10.1); CHLORIDE 105 MMOL/L (99-107); CREATININE 0.84 MG/DL (0.60-1.10); GLUCOSE 121 MG/DL (70-104); MAGNESIUM 2.3 MG/DL (1.5-2.4); POTASSIUM 4.2 MMOL/L (3.5-5.1); SODIUM 140 MMOL/L (135-145); eCRCL 107 ML/MIN; eGFR > 90 ML/MIN
[2024-01-31 08:00] VITALS: RESP 18; O2SAT 96
[2024-01-31 08:04] VITALS: BP_SYST 124; PULSE 63
[2024-01-31 10:02] LABS: ACT @ 1.70 U 283 SEC (193-297); ACT @ 2.84 U 390 SEC (260-420); BASELINE ACT 136 SEC (101-148)
[2024-01-31 12:05] LABS: ABG PO2 418.7 mmHg (83.0-108.0)
[2024-01-31 12:06] LABS: ABG OXYGEN SATURATION 82.1 % (94.0-98.0); ABG PO2 49.9 mmHg (83.0-108.0)
== END 2024-01-31 12:06 | disposition home or self-care (01) | DRG 236 ==
LOC: PAS IN 05:31 → CICU 2S 11:53 → PCU 3S 01-30 12:35
PROVIDERS: ADMIT Thoracic Surgery (Cardiothoracic Vascular Surgery); ATTEND Thoracic Surgery (Cardiothoracic Vascular Surgery)
PROC: 02100Z8 Bypass Coronary Artery, One Artery from Right Internal Mammary, Open Approach (ICD-10-PCS; 2024-01-27)
PROC: 021009W Bypass Coronary Artery, One Artery from Aorta with Autologous Venous Tissue, Open Approach (ICD-10-PCS; 2024-01-27)
PROC: 06BP4ZZ Excision of Right Saphenous Vein, Percutaneous Endoscopic Approach (ICD-10-PCS; 2024-01-27)
PROC: 5A1221Z Performance of Cardiac Output, Continuous (ICD-10-PCS; 2024-01-27)
PROC: B24BZZ4 Ultrasonography of Heart with Aorta, Transesophageal (ICD-10-PCS; 2024-01-27)
PROC: 0W9B00Z Drainage of Left Pleural Cavity with Drainage Device, Open Approach (ICD-10-PCS; 2024-01-27)
PROC: 0W9900Z Drainage of Right Pleural Cavity with Drainage Device, Open Approach (ICD-10-PCS; 2024-01-27)
PROC: 02100Z9 Bypass Coronary Artery, One Artery from Left Internal Mammary, Open Approach (ICD-10-PCS; principal; 2024-01-27 08:04)
PROC: 5A0945A Assistance with Respiratory Ventilation, 24-96 Consecutive Hours, High Flow/Velocity Cannula (ICD-10-PCS; 2024-01-28)
DX: I25.119 Atherosclerotic heart disease of native coronary artery with unspecified angina pectoris (principal); T82.855A Stenosis of coronary artery stent, initial encounter; I48.91 Unspecified atrial fibrillation; I10 Essential (primary) hypertension; E78.5 Hyperlipidemia, unspecified; E87.70 Fluid overload, unspecified; Y83.8 Other surgical procedures as the cause of abnormal reaction of the patient, or of later complication, without mention of misadventure at the time of the procedure; Z88.0 Allergy status to penicillin; Y92.89 Other specified places as the place of occurrence of the external cause; Z79.82 Long term (current) use of aspirin; Z79.899 Other long term (current) drug therapy; Z79.01 Long term (current) use of anticoagulants
CPT/HCPCS: 36415; 36600; 71045; 71046; 80048; 80053; 81003; 82330; 82435; 82803; 82947; 82948; 83036; 83735; 84100; 84132; 84295; 85018; 85025; 85347; 85610; 85730; 86885; 86900; 86901; 86920; 87081; 93005; 93306; 93312; 93325; 93970; 94002; 94010; 94668; 94760; 97116; 97161; 97530; A4333; A4615; A4618; A6213; A6258; A6402; A6449; A7000; A7048; C1751; G0378; J0171; J0282; J0665; J0690; J1644; J1815; J1885; J2060; J2150; J2250; J2270; J2440; J2704; J2720; J2919; J3010; J3370; J3480; J3490; J7030; J7040; J7050; J7060; J7120; P9045; P9047